=== PATIENT | female | born 1995 | race Two or more races ===

== ENCOUNTER 2025-06-19 20:24 | Emergency (ER) | payer BC, OTHER ==
[~2025-06-19] VITALS: Ht 170.2 cm; Wt 72.7 kg
[2025-06-19] MEDS: TETANUS-DIPTH-ACEL PERTUSSIS 0.5ML SYR Tdap IM ONE (20:49)
[2025-06-19] MEDS: KETOROLAC TROMETH 30 MG/ML 1ML VIAL IM ONE (21:01)
[2025-06-19] MEDS: ACETAMINOPHEN 325 MG TAB PO ONE (21:02)
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
[2025-06-19] MEDS: cefTRIAXone 1GM/50ML D5W 50 ML IV ONE (21:28)
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
[2025-06-19] MEDS ORDERED: LIDOCAINE W/ EPINEPHRINE 1.5 % INJ 5ML AMP IJ ONE (21:45)
[2025-06-19] MEDS: LIDOCAINE W/ EPINEPHRINE 1% 20ML VIAL ONE (21:45)
[2025-06-19] MEDS: LIDOCAINE W/ EPINEPHRINE 1% 20ML VIAL ID ONE (21:46)
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
[2025-06-20] MEDS: ONDANSETRON HCL 4 MG/2 ML VIAL IV ONE (00:27)
[2025-06-20] MEDS: NEOMYCIN-BACITRACIN-POLYM UNITDOSE PKG TOP OINT TOP ONE (00:34)
[2025-06-20] MEDS: BACITRACIN TOP OINT 1 UD PKG TOP ONE (00:34)
[2025-06-20] MEDS ORDERED: ACET650T12 PO (00:46)
[2025-06-20] MEDS ORDERED: IBUP-1454 PO (00:46)
[2025-06-20 00:58] VITALS: BP 152/92; PULSE 94; RESP 12; TEMP 98.2; O2SAT 98
== END 2025-06-20 01:33 | disposition home or self-care (01) ==
LOC: ER 20:24
DX: S81.812A Laceration without foreign body, left lower leg, initial encounter (principal); S49.92XA Unspecified injury of left shoulder and upper arm, initial encounter; S06.9X9A Unspecified intracranial injury with loss of consciousness of unspecified duration, initial encounter; V86.55XA Driver of 3- or 4- wheeled all-terrain vehicle (ATV) injured in nontraffic accident, initial encounter; Y93.89 Activity, other specified; Y92.410 Unspecified street and highway as the place of occurrence of the external cause; Y99.8 Other external cause status
CPT/HCPCS: 12042; 70450; 73030; 73590; 90471; 90715; 96365; 96372; 96375; 99285; J0696; J1885; J2405; 12002